=== PATIENT | female | born 1990 | race African-American/Black ===

== ENCOUNTER 2024-07-18 20:39 | Emergency (ER) | payer BC, OTHER ==
[2024-07-18] MEDS ORDERED: NA CHLORIDE 0.9% 1,000 ML ONE (21:11)
[2024-07-18] MEDS ORDERED: ONDANSETRON 4 MG/2 ML VIAL ONE (21:11)
[2024-07-18 21:18] LABS: Specific Gravity > 1.030 (1.005-1.030); Sqamous Epithelial <5 /HPF (None Seen); Urine Bacteria None Seen /HPF (<20); Urine Bilirubin NEGATIVE (Negative); Urine Blood Negative (Negative); Urine Clarity Clear (Clear); Urine Color Light-Yellow (Yellow); Urine Culture Reflex Order NOT NEEDED; Urine Glucose NEGATIVE (Negative); Urine Ketones 4+ (Over) (Negative); Urine Microscopic Reflex YN ORDER UMIC; Urine Mucus Slight /HPF (None Seen); Urine Nitrite NEGATIVE (Negative); Urine Protein TRACE (Negative); Urine RBC <5 /HPF (None Seen); Urine Urobilinogen Normal (Normal); Urine WBC <5 /HPF (<5); Urine Yeast (Budding) Trace /HPF (None Seen)
[2024-07-18 21:19] LABS: Absolute Lymphocytes (CBC) 1.5 K/uL (0.7-4.9); Absolute Monocytes 0.4 K/uL (0.1-1.3); Absolute Neutrophil 5.7 K/uL (1.8-8.0); Basophils % 0.6 % (0-1.3); Eosinophils % 0.2 % (0-4.4); Hematocrit 37.1 % (36.0-45.0); Hemoglobin 12.4 g/dL (12.0-15.0); Lymphocytes % 19.4 % (15.3-44.8); MCHC 33.3 g/dL (32.0-36.0); MPV 7.8 fL (7.6-11.3); Monocytes % 5.1 % (3.3-12.3); Neutrophils % 74.7 % (41.7-73.7); Platelets 303 thou/uL (152-406); RBC Red Blood Cell Count 3.87 M/uL (3.86-4.86)
[2024-07-18 21:38] LABS: Albumin 4.4 g/dL (3.4-5.0); Albumin/Globulin Ratio 1.3 (1.1-1.8); Anion Gap 7.4 mEq/L (5.0-15.0); Bilirubin Total 0.5 mg/dL (0.2-1.0); Globulin 3.3 g/dL (2.3-3.5); Potassium 4.4 mEq/L (3.5-5.1); Protein, Total 7.7 g/dL (6.4-8.2)
[2024-07-18] MEDS ORDERED: PROMETHAZINE INJ 25 MG/ML AMP ONE (23:02)
--- NOTE | 2024-07-18 23:39 | ER ---
Nurse's Notes [facility] Name: Josué Hurst Age: 34 yrs Sex: Female : 1990 Arrival Date: 07/18/2024 Time: 20:39 Bed 5 Private MD: Diagnosis: Nausea with vomiting, unspecified;Dehydration Presentation: 07/18 20:52 Chief complaint: Patient states: drank a lot yesterday and i think i have ETOH lg3 poisoning. nausea/vomiting starting last night. Coronavirus screen: Client denies travel out of the [place] in the last 14 days. At this time, the client does not indicate any symptoms associated with coronavirus-19. Ebola Screen: No symptoms or risks identified at this time. Initial Sepsis Screen: Does the patient meet any 2 criteria? No. Patient's initial sepsis screen is negative. Does the patient have a suspected source of infection? No. Patient's initial sepsis screen is negative. Risk Assessment: Do you want to hurt yourself or someone else? Patient reports no desire to harm self or others. Onset of symptoms was July 17, 2024. 20:52 Method Of Arrival: Ambulatory lg3 20:52 Acuity: COSMO 3 lg3 Triage Assessment: 20:54 General: Appears in no apparent distress. uncomfortable, Behavior is calm, cooperative. lg3 Pain: Complains of pain in abdomen. EENT: No deficits noted. No signs and/or symptoms were reported regarding the EENT system. Neuro: No deficits noted. Torres Agitation-Sedation Scale (RASS): 0 - Alert and Calm Level of Consciousness is awake, alert, obeys commands, Oriented to person, place, time, situation. Cardiovascular: No deficits noted. Denies chest pain, shortness of breath, Capillary refill < 3 seconds Clubbing of nail beds is absent JVD is absent Patient's skin is warm and dry. Respiratory: No deficits noted. Airway is patent Respiratory effort is even, unlabored, Respiratory pattern is regular, symmetrical. GI: Reports lower abdominal pain, upper abdominal pain, nausea, vomiting. : No signs and/or symptoms were reported regarding the genitourinary system. Derm: No deficits noted. No signs and/or symptoms reported regarding the dermatologic system. Skin is intact, is healthy with good turgor, Skin is dry, Skin is normal, Skin temperature is warm. Musculoskeletal: No deficits noted. No signs and/or symptoms reported regarding the musculoskeletal system. Circulation, motion, and sensation intact. Range of motion: intact in all extremities. 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 - Infectious Disease History:: Denies. - Social history:: Smoking status: Patient denies any tobacco usage or history of. Patient uses alcohol, only on a social basis. Screenin:05 Clinical [place] Withdrawal Assessment for Alcohol, revised (CIWA-Ar): cp4 Nausea/Vomiting:. [facility] ED Fall Risk Assessment (Adult) History of falling in the last 3 months, including since admission No falls in past 3 months (0 pts) Confusion or Disorientation No (0 pts) Intoxicated or Sedated No (0 pts) Impaired Gait No (0 pts) Mobility Assist Device Used No (0 pt) Altered Elimination No (0 pt) Score/Fall Risk Level 0 - 2 = Low Risk Oriented to surroundings, Maintained a safe environment, Assessed \T\ reinforced patient's understanding of fall precautions, Hourly rounding (assess needs \T\ fall precautionary measures) done. Abuse screen: Denies threats or abuse. Nutritional screening: No deficits noted. Tuberculosis screening: No symptoms or risk factors identified. Assessment: 21:05 General: Appears in no apparent distress. uncomfortable, Behavior is calm, cooperative, cp4 appropriate for age. Pain: Denies pain. Neuro: Level of Consciousness is awake, alert, obeys commands, Oriented to person, place, time, situation. Cardiovascular: Patient's skin is warm and dry. Respiratory: Airway is patent Respiratory effort is even, unlabored. GI: Abdomen is round non-distended, Bowel sounds present X 4 quads. Abd is soft and non tender X 4 quads. Reports nausea, vomiting. : No signs and/or symptoms were reported regarding the genitourinary system. EENT: No signs and/or symptoms were reported regarding the EENT system. Derm: No signs and/or symptoms reported regarding the dermatologic system. Musculoskeletal: No signs and/or symptoms reported regarding the musculoskeletal system. 07/19 00:00 Reassessment: Patient appears in no apparent distress at this time. Patient and/or bm8 family updated on plan of care and expected duration. Pain level reassessed. Patient is alert, oriented x 3, equal unlabored respirations, skin warm/dry/pink. denies nausea at time of discharge Patient denies pain at this time. Patient states feeling better. Patient states symptoms have improved. Vital Signs: 07/18 20:52 BP 113 / 65; Pulse 60; Resp 17 S; Temp 98.6(O); Pulse Ox 100% on R/A; Weight 51.71 kg lg3 (R); Height 5 ft. 1 in. (R); 07/19 00:00 BP 113 / 73; Pulse 77; Resp 18; Temp 98.6; Pulse Ox 99% ; Pain 0/10; bm8 07/18 20:52 Body Mass Index 21.54 (51.71 kg, 154.94 cm) lg3 07/19 00:00 Pain Scale: Adult bm8 Rob Coma Score: 00:00 Eye Response: spontaneous(4). Motor Response: obeys commands(6). Verbal Response: bm8 oriented(5). Total: 15. ED Course: 07/18 20:43 Patient arrived in ED. jj6 20:45 Ofelia Salgado PA-C is PHCP. sb4 20:45 Socrates King MD is Attending Physician. sb4 20:54 Triage completed. lg3 20:54 Arm band placed on left wrist. lg3 21:05 Stephanie Martins is Primary Nurse. cp4 21:05 Bed in low position. Call light in reach. Side rails up X 1. Provided Education on: cp4 nausea, vomiting. 21:05 No provider procedures requiring assistance completed. cp4 21:12 Inserted saline lock: 20 gauge in right antecubital area, using aseptic technique. sa1 Blood collected. Flushed with 10 mL NS. 07/19 00:00 Client placed on continuous cardiac and pulse oximetry monitoring. NIBP monitoring bm8 applied. equipment monitor phototypesetting on. Pulse ox on. NIBP on. 00:00 IV discontinued, intact, bleeding controlled, No redness/swelling at site. Pressure bm8 dressing applied. Patient maintains SpO2 saturation greater than 95% on room air. Administered Medications: 07/18 21:15 Drug: Ondansetron IVP 4 mg IVP once; over 2 minutes Route: IVP; Site: right antecubital;cp4 07/19 00:00 Follow up: Response: No adverse reaction bm8 07/18 21:15 Drug: NS 0.9% IV 2000 ml IV at 1 bolus Per protocol; to be given as a bolus over 60 cp4 minutes Route: IV; Rate: 1 bolus; Site: right antecubital; 07/19 00:00 Follow up: Response: No adverse reaction; IV Status: Completed infusion; IV Intake: bm8 1000ml 07/18 23:05 Drug: Promethazine IVP 6.25 mg IVP once Route: IVP; Site: right antecubital; bm8 23:59 Follow up: Response: No adverse reaction bm8 Medication: 21:05 VIS not applicable for this client. cp4 Intake: 07/19 00:00 IV: 1000ml; Total: 1000ml. bm8 Outcome: 07/18 23:39 Discharge ordered by . sb4 07/19 00:00 Discharged to home ambulatory, with family, bm8 Condition: stable Discharge instructions given to patient, family, Instructed on discharge instructions, follow up and referral plans. no drinking with medication, no driving heavy equipment, medication usage, Demonstrated understanding of instructions, follow-up care, medications, Prescriptions given X 1, 00:02 Patient left the ED. bm8 Signatures: Alix Goodrich, RN RN lg3 Nehal Dimasj6 Ofelia Salgado PACele PA-C sb4 Stephanie Martins cp4 Kaushik Milton RN RN bm8 [place] Mary Ann 1
--- NOTE | 2024-07-18 23:39 | EDPHYS ---
Physician Documentation [facility] Name: Josué Hurst Age: 34 yrs Sex: Female : 1990 Arrival Date: 07/18/2024 Time: 20:39 Bed 5 Private MD: ED Physician Socrates King HPI: 07/19 00:03 This 34 yrs old Black Female presents to ER via Ambulatory with complaints of sb4 Nausea/Vomiting. 00:03 The patient presents to the emergency department with nausea, vomiting. Onset: The sb4 symptoms/episode began/occurred last night. Possible causes: alcohol. The symptoms are aggravated by food , The symptoms are alleviated by nothing. Associated signs and symptoms: The patient has no apparent associated signs or symptoms. The patient has not experienced similar symptoms in the past. The patient has not recently seen a physician. 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 - Infectious Disease History:: Denies. - Social history:: Smoking status: Patient denies any tobacco usage or history of. Patient uses alcohol, only on a social basis. ROS: 07/19 00:03 Constitutional: Negative for fever, chills, and weight loss, sb4 Abdomen/GI: Positive for nausea and vomiting, All other systems are negative, Exam: 00:03 Head/Face: Normocephalic, atraumatic. Eyes: Extra-ocular motions intact. Periorbital sb4 areas with no swelling, redness, or edema. ENT: Mucous membranes moist. Cardiovascular: Regular rate and rhythm with a normal S1 and S2. Respiratory: Lungs have equal breath sounds bilaterally, clear to auscultation and percussion. No rales, rhonchi or wheezes noted. No increased work of breathing, no retractions or nasal flaring. Abdomen/GI: Soft, non-tender, no distension. Skin: Warm, dry with normal turgor. Normal color with no rashes, no lesions, and no evidence of cellulitis. 00:03 Constitutional: The patient appears alert, awake, uncomfortable, Vital Signs: 07/18 20:52 BP 113 / 65; Pulse 60; Resp 17 S; Temp 98.6(O); Pulse Ox 100% on R/A; Weight 51.71 kg lg3 (R); Height 5 ft. 1 in. (R); 07/19 00:00 BP 113 / 73; Pulse 77; Resp 18; Temp 98.6; Pulse Ox 99% ; Pain 0/10; bm8 07/18 20:52 Body Mass Index 21.54 (51.71 kg, 154.94 cm) lg3 07/19 00:00 Pain Scale: Adult bm8 Rob Coma Score: 00:00 Eye Response: spontaneous(4). Motor Response: obeys commands(6). Verbal Response: bm8 oriented(5). Total: 15. MDM: 07/18 20:48 Patient medically screened. sb4 07/19 00:03 Data reviewed: vital signs, nurses notes, lab test result(s), and as a result, I will sb4 discharge patient. Counseling: I had a detailed discussion with the patient and/or guardian regarding the historical points, exam findings, and any diagnostic results supporting the discharge/admit diagnosis, lab results, the need for outpatient follow up, for definitive care, to return to the emergency department if symptoms worsen or persist or if there are any questions or concerns that arise at home. 07/18 21:05 Order name: CBC with Diff; Complete Time: 21:29 sb4 07/18 21:05 Order name: CMP; Complete Time: 21:38 sb4 07/18 21:05 Order name: Lipase; Complete Time: 21:38 sb4 07/18 21:05 Order name: Test, Urine; Complete Time: 21:22 sb4 07/18 21:05 Order name: Urinalysis w/ reflexes; Complete Time: 21:22 sb4 07/18 21:05 Order name: IV Saline Lock; Complete Time: 21:20 sb4 07/18 21:05 Order name: Labs collected and sent; Complete Time: 21:20 sb4 07/18 21:43 Order name: PO challenge; Complete Time: 22:56 sb4 Administered Medications: 07/18 21:15 Drug: Ondansetron IVP 4 mg IVP once; over 2 minutes Route: IVP; Site: right antecubital;cp4 07/19 00:00 Follow up: Response: No adverse reaction bm8 07/18 21:15 Drug: NS 0.9% IV 2000 ml IV at 1 bolus Per protocol; to be given as a bolus over 60 cp4 minutes Route: IV; Rate: 1 bolus; Site: right antecubital; 07/19 00:00 Follow up: Response: No adverse reaction; IV Status: Completed infusion; IV Intake: bm8 1000ml 07/18 23:05 Drug: Promethazine IVP 6.25 mg IVP once Route: IVP; Site: right antecubital; bm8 23:59 Follow up: Response: No adverse reaction bm8 Disposition Summary: 07/18/24 23:39 Discharge Ordered Notes: Location: Home sb4 Problem: new sb4 Symptoms: have improved sb4 Condition: Stable sb4 Diagnosis - Nausea with vomiting, unspecified sb4 - Dehydration sb4 Followup: sb4 - With: Emergency Department - When: As needed - Reason: Trouble breathing, Worsening of condition Discharge Instructions: - Discharge Summary Sheet sb4 - Dehydration, Adult sb4 - Nausea and Vomiting, Adult sb4 Forms: - Patient Portal Instructions sb4 - Leadership Thank You Letter sb4 Prescriptions: - ondansetron 8 mg Oral Tablet,disintegrating - take 1 tablet ORAL route every 8 hours As needed; 10 tablet; Refills: 0, sb4 Product Selection Permitted Signatures: Dispatcher [employer] Alix Luevano RN RN lg3 Ofelia Salgado PA-C PA-C sb4 Stephanie Martins cp4 Kaushik Milton RN RN bm8
[2024-07-19 04:49] VITALS: TEMP 98.6
[2024-07-19 04:51] VITALS: BP 113/65; O2SAT 100
== END 2024-07-19 00:02 | disposition home or self-care (01) ==
LOC: ER 20:39
DX: R11.2 Nausea with vomiting, unspecified (principal); E86.0 Dehydration
CPT/HCPCS: 85025; 81001; 36415; 81025; 83690; 80053; J2550; J2405; J7030